=== PATIENT | female | born 1970 | race African-American/Black ===

== ENCOUNTER 2018-10-24 00:45 | Emergency (ER) | payer MEDICAID ==
[~2018-10-24] VITALS: Ht 165.1 cm; Wt 102.1 kg
--- NOTE | 2018-10-24 01:00 | NUR ---
ED Nurse Note: Pt presents to the ED with left wrist pain s/p fall 30 min [employer]. reports 10/10 pain ; facial grimacing and grasping of site noted. AO4. NAD. VSS.
[2018-10-24] MEDS ORDERED: Norco 5mg/325mg tab ORAL ONE (01:15)
[2018-10-24] MEDS ORDERED: NKM (01:23)
[2018-10-24 01:33] VITALS: BP 147/93
[2018-10-24] MEDS ORDERED: HYDROCODON-ACE1 EA15 ORAL (01:41)
[2018-10-24] MEDS ORDERED: IBUPROFEN600 MG ORAL (01:41)
--- NOTE | 2018-10-24 01:42 | Emergency Room Report ---
History of Present Illness General Chief Complaint: Upper Extremity Injury Source: Patient Present Illness HPI Is a 48-year-old female who is right-hand dominant. She presents with chief when wrist injury. She was walking pretty quickly and tripped over the threshold of the door. She fell against the wall with outstretched hand. She sustained injury to her left wrist. Pain is 9 out of 10. Worse with movement. There is deformity. No injury. Allergies: Coded Allergies: No Known Allergies (Unverified , 10/24/18) Patient History Past Medical History: see triage record, old chart reviewed Past Surgical History: none Pertinent Family History: none Social History: Denies: smoking Now: No Immunizations: other Reviewed Nursing Documentation: PMH: Agreed; PSxH: Agreed Nursing Documentation-PMH Past Medical History: No Stated History Review of Systems Eye: Denies: eye pain, blurred vision ENT: Denies: ear pain, nose congestion, throat swelling Respiratory: Denies: cough, shortness of breath Cardiovascular: Denies: chest pain, palpitations Gastrointestinal: Denies: abdominal pain, diarrhea, nausea, vomiting Musculoskeletal: Reports: joint pain; Denies: back pain Skin: Denies: rash Neurological: Denies: headache, numbness Endocrine: Denies: increased thirst, increased urine Hematologic/Lymphatic: Denies: easy bruising All Other Systems: negative except mentioned in HPI Physical Exam Vital Signs Date Time Temp Pulse Resp B/P (MAP) Pulse Ox O2 Delivery O2 Flow Rate FiO2 10/24/18 00:52 97.0 77 16 147/93 98 Room Air vitals unremarkable Sp02 EP Interpretation: reviewed, normal General Appearance: well appearing, no apparent distress, alert Head: normocephalic, atraumatic Eyes: bilateral eye PERRL, bilateral eye EOMI ENT: hearing grossly normal, normal pharynx Neck: full range of motion, supple, no meningismus Respiratory: chest non-tender, lungs clear, normal breath sounds Cardiovascular #1: regular rate, rhythm, no murmur Gastrointestinal: normal bowel sounds, no mass, no organomegaly, no bruit, non- distended, tenderness, other - Left wrist with dinner fork deformity. Pulses normal. Sensation normal. Compartment soft. Nontender over the elbow and fingers. Musculoskeletal: back normal, gait/station normal, normal range of motion Neurologic: alert, oriented x3 Psychiatric: mood/affect normal Skin: warm/dry Procedures Splinting Splinting : Consent: Verbal Location: Left wrist Hand-Made Type: plaster Splint: sugar-tong Pre-Proc Neuro Vasc Exam: normal Post-Proc Neuro Vasc Exam: normal Patient Tolerated: Well Complications: None Joint Reduction Joint Reduction : Consent: Verbal Joint Reduction Site: wrist (L) Procedural Sedation: No Reduction Attempts: One Pre-Procedure NV Exam: Yes Post-Procedure NV Exam: Yes Post Joint Reduction Film: joint not reduced Patient Tolerated: Well Complications: None Progress Hematoma block with 1% lidocaine without epinephrine. I injected about 7 mL. Joint reduce with some success. Sugar tong splint done. Sling given. Patient tolerated procedure without a problem. Medical Decision Making Diagnostic Impression: Primary Impression: Colles' fracture of left radius Qualified Codes: S52.532A - Colles' fracture of left radius, initial encounter for closed fracture ER Course Patient with a Colles' fracture. I try to reduce the fracture with some success not fully reduced. Patient procedure without a problem. Other X-Ray Diagnostic Results Other X-Ray Diagnostic Results #1: X-Ray ordered: Left wrist xrays # of Views/Limited Vs Complete: 3 View Indication: Pain EP Interpretation: Yes Interpretation: no dislocation, no soft tissue swelling, other - distal radius frx with displacement Impression: Other - Colles frx Electronically Signed by: Tomasz Smith MD Other X-Ray Diagnostic Results #2: X-Ray ordered: Left wrist # of Views/Limited Vs Complete: 3 View Indication: Pain EP Interpretation: Yes Interpretation: no dislocation, no soft tissue swelling, other - distal radius frx Impression: Other - colles frx, s/p reduction Electronically Signed by: Tomasz Smith MD Last Vital Signs Date Time Temp Pulse Resp B/P (MAP) Pulse Ox O2 Delivery O2 Flow Rate FiO2 10/24/18 01:33 97.0 84 16 147/93 98 Room Air Status: improved Disposition: HOME, SELF-CARE Condition: Stable Scripts Ibuprofen* (MOTRIN*) 600 Mg Tablet 600 MG ORAL THREE TIMES A DAY, #30 TAB 0 Refills Prov: Tomasz Smith MD 10/24/18 Hydrocodone/Acetaminophen 5-325* (HYDROCODONE/ACETAMINOPHEN 5-325*) 1 Each Tablet 1 TAB ORAL Q6H PRN for For Pain, #30 TAB 0 Refills Prov: Tomasz Smith MD 10/24/18 Referrals: NOT CHOSEN [facility]/MD,REFERRING (PCP) Additional Instructions: Follow-up with your Dr. in 7 days. You will need to follow-up with orthopedic doctor. Return if symptom worsen. Tomasz Smith MD Oct 24, 2018 01:42
--- NOTE | 2018-10-24 02:55 | NUR ---
ED Nurse Note: Patient cleared for discharge per ERMD. AO4. NAD. VSS. Patient given prescriptions and discharge instructions; verbalized understanding. ID band removed. Patient ambulated out with all personal belongings with steady gait.
[2018-10-24 02:58] VITALS: BP 147/93
--- NOTE | 2018-10-24 11:00 | Diagnostic Imaging Report ---
Clinical Indication:Trauma, pain, status post fall Technique: 3 views of the left wrist Comparison: None Findings: There is a comminuted fracture of the distal radius. This is posteriorly displaced by one bone width, overriding, and impacted and involves the articular surface. No associated ulnar fracture. Impression: Positive for comminuted distal radial fracture This agrees with the findings reported by the emergency room physician in the electronic medical record
--- NOTE | 2018-10-24 11:04 | Diagnostic Imaging Report ---
Clinical Indication:Left wrist pain Technique: 3 views of the left wrist Comparison: One hour earlier Findings: Interim splinting and closed reduction of previously demonstrated distal radial fracture, with improved anatomic alignment. Overlying splint obscures bony detail Impression: Status post closed reduction and splinting of previously demonstrated distal radial fracture, with somewhat improved anatomic alignment
== END 2018-10-24 02:55 | disposition home or self-care (01) ==
LOC: EMR 01:30
DX: S52.532A Colles' fracture of left radius, initial encounter for closed fracture (principal); W01.0XXA Fall on same level from slipping, tripping and stumbling without subsequent striking against object, initial encounter; Y93.01 Activity, walking, marching and hiking; Y92.009 Unspecified place in unspecified non-institutional (private) residence as the place of occurrence of the external cause
CPT/HCPCS: 25605; 29125; 73110; 99283; Z7502